=== PATIENT | female | born 1985 | race African-American/Black ===

== ENCOUNTER 2017-05-11 14:03 | Emergency (ER) | payer MEDICAID ==
[~2017-05-11] VITALS: Ht 149.9 cm; Wt 82.0 kg
[~2017-05-11 14:03] MED LIST: CEPH500C3 PO; IMOD2TAB PO; ZOFR4TAB3 SL
[2017-05-11 14:08] VITALS: BP 133/95; PULSE 91; RESP 14; TEMP 98.7; O2SAT 100
--- NOTE | 2017-05-11 15:08 | PD ---
HPI . Abdominal pain Chief Complaint: Abdominal Pain Time Seen by Provider: 15:05 Travel History International Travel<30 days: No Contact w/Intl Traveler<30days: No Traveled to known affect area: No History of Present Illness HPI Patient presents with a chief complaint of left-sided abdominal pain. Onset was at 2:00 this morning. Pain is sharp. It is exacerbated by movement. She denies any associated symptoms such as nausea, vomiting, diarrhea, constipation , urinary tract symptoms,. She did state that her last menstrual period was extremely brief. [facility] Past Medical History Medical History: Denies Significant Hx Tetanus Vaccination: < 5 Years Influenza Vaccination: No ?: Not LMP: 04/15/17 Past Surgical History Surgical History: No Previous Surgery Social History Alcohol Use: No Tobacco Use: No Substance Use: No Allergies-Medications (Allergen,Severity, Reaction): Coded Allergies: No Known Allergies (Verified Adverse Reaction, Unknown, 05/11/17) Reported Meds & Prescriptions Reported Meds & Active Scripts Active No Active Prescriptions or Reported Medications Review of Systems Except as stated in HPI: all other systems reviewed are Neg Gastrointestinal: Positive: Abdominal Pain Physical Exam Narrative GENERAL: Patient is awake and alert and in no acute distress. SKIN: Warm and dry with no rash or lesions. HEAD: Cephalic/atraumatic. EYES: Pupils are equal. Extraocular movements are intact. NECK: Neck is supple. CARDIOVASCULAR: Regular rate and rhythm. RESPIRATORY: Nonlabored respirations. ABDOMEN: Soft with left lower quadrant tenderness. No guarding or rebound. MUSCULOSKELETAL: Atraumatic. NEUROLOGICAL: Nonfocal. PSYCHIATRIC: Appropriate mood and affect. Data Data Last Documented VS Vital Signs Date Time Temp Pulse Resp B/P (MAP) Pulse Ox O2 Delivery O2 Flow Rate FiO2 05/11/17 14:08 98.7 91 14 133/95 (108) 100 Room Air Orders Orders Beta Hcg (Quant/Titer) (05/11/17 15:05) Us Pelvis (Ques Pr/Ect)W Trans (05/11/17 ) Ed Urine Pregnancytest Poc (05/11/17 15:18) Urinalysis - C+S If Indicated (05/11/17 15:21) Complete Rh (05/11/17 15:27) Labs Laboratory Tests Test 05/11/17 15:17 Human Chorionic Gonadotropin, Quant 524 MIU/ML MDM Medical Decision Making Medical Screen Exam Complete: Yes Emergency Medical Condition: Yes Differential Diagnosis Differential diagnosis of pelvic pain includes but is not limited to UTI, PID, ectopic , spontaneous AB, constipation, viral illness Narrative Course This patient presents complaining with left lower quadrant abdominal pain. She states her last menstrual period was very brief. Her urine test is positive. A quantitative hCG and pelvic ultrasound have been ordered. Diagnosis Primary Impression: Abdominal pain Qualified Codes: R10.32 - Left lower quadrant pain Scripts No Active Prescriptions or Reported Meds Tiffany Grande MD May 11, 2017 15:08
--- NOTE | 2017-05-11 15:33 | PD ---
Physical Exam Time Seen by Provider: 15:15 Data Data Last Documented VS Vital Signs Date Time Temp Pulse Resp B/P (MAP) Pulse Ox O2 Delivery O2 Flow Rate FiO2 05/11/17 14:08 98.7 91 14 133/95 (108) 100 Room Air Orders Orders Beta Hcg (Quant/Titer) (05/11/17 15:05) Us Pelvis (Ques Pr/Ect)W Trans (05/11/17 ) Ed Urine Pregnancytest Poc (05/11/17 15:18) Urinalysis - C+S If Indicated (05/11/17 15:21) Complete Rh (05/11/17 15:27) Labs Laboratory Tests Test 05/11/17 15:17 05/11/17 16:45 Human Chorionic Gonadotropin, Quant 524 MIU/ML Urine Color YELLOW Urine Turbidity HAZY Urine pH 7.0 Urine Specific [place] 1.025 Urine Protein TRACE mg/dL Urine Glucose (UA) NEG mg/dL Urine Ketones NEG mg/dL Urine Occult Blood MOD Urine Nitrite NEG Urine Bilirubin NEG Urine Urobilinogen 2.0 MG/DL Urine Leukocyte Esterase NEG Urine RBC 3 /hpf Urine WBC LESS THAN 1 /hpf Urine Squamous Epithelial Cells 4 /hpf Urine Amorphous Sediment RARE Urine Mucus FEW /lpf Microscopic Urinalysis Comment CULT NOT INDICATED MDM Medical Record Reviewed: Yes Supervised Visit with ADRIAN: No Narrative Course Please see Dr. Grande' note. Briefly this is a patient developed left lower quadrant pain at 2 AM this morning. Pain is sharp, constant. On examination she has focal mild left lower quadrant tenderness without guarding. She reports that she had slight vaginal spotting 2 days ago which she thought was her menstrual period beginning. Her last normal menstrual period was approximately April 12. She has had 2 previous full-term pregnancies. She had a positive urine test in triage. Pelvic ultrasound, quantitative beta hCG are currently pending. Given recent vaginal spotting, complete Rh has been ordered. Urinalysis has also been ordered. Ultrasound reveals CONCLUSION: Negative for products of conception. Follow up is suggested. Quantitative beta hCG is 524. The patient's abdomen is soft, she does have focal left lower quadrant tenderness and therefore this was discussed with the on-call tearer press clipping Dr. Iglesias. He does recommend that the patient return in 48 hours for repeat quantitative beta hCG and ultrasound imaging as the is simply too early to rule out ectopic. Discussed these recommendations with the patient is agreeable to returning in 2 days. Diagnosis Primary Impression: Early stage of Additional Impression: Pelvic pain during Departure Forms: Tests/Procedures, Work Release Enter return to work date: May 14, 2017 Additional Instruction: Take [id number]-[id number] Tylenol for pain per dosing instructions on the bottle. As discussed, return in 2 days for repeat quantitative beta hCG and pelvic ultrasound imaging. Return sooner for severe pain, syncope, severe lightheadedness. Med/Other Pt SpecificInfo: No Change to Meds Scripts No Active Prescriptions or Reported Meds Disposition: 01 DISCHARGE HOME Condition: Stable Odilon Holbrook May 11, 2017 15:33
[2017-05-11 15:50] LABS: BETA HCG QUANT 524 MIU/ML (0-5)
[2017-05-11 16:55] LABS: BLOOD, URINE MOD (NEG); COMMENT (UR) CULT NOT INDICATED; CULTURE IF INDICATED CULT NOT INDICATED; GLUCOSE,URINE NEG (NEG); KETONE, URINE NEG (NEG); MUCUS URINE FEW /lpf (OCC); NITRITE,URINE NEG (NEG); SQUAMOUS EPITHELIAL CELL URINE 4 /hpf (0-5); URINE COLOR YELLOW (YELLW/STRAW)
--- NOTE | 2017-05-11 16:58 | RADRPT ---
EXAM DATE/TIME: 05/11/2017 15:46 [facility] COMPARISON: No previous studies available for comparison. INDICATIONS : Pelvic pain. Limited exam due to patient body habitus LAB(S): Beta-hC MEDICAL HISTORY : . Pelvic pain. SURGICAL HISTORY : section. ENCOUNTER: Initial ACUITY: 1 day PAIN SCORE: 10/10 LOCATION: Bilateral pelvis MEASUREMENTS: TRANSABDOMINAL: FINDINGS: UTERUS: Poorly visualized without products of conception. RIGHT OVARY: Not visualized LEFT OVARY: Ovary contains no mass or significant cystic lesion. MISCELLANEOUS: Minimal free fluid CONCLUSION: Negative for products of conception. Follow up is suggested. Surinder Rajan MD FACR on May 11, 2017 at 16:42 Board Certified Radiologist. This report was verified electronically.
[2017-05-11 17:22] VITALS: BP_SYST 74
== END 2017-05-11 17:23 | disposition home or self-care (01) ==
LOC: NEPD 14:03
DX: Z32.01 Encounter for pregnancy test, result positive (principal); R10.2 Pelvic and perineal pain
CPT/HCPCS: 76700; 76817; 81001; 84702; 84703; 86901; 99284

== ENCOUNTER 2017-05-13 17:19 | Emergency (ER) | payer MEDICAID ==
[~2017-05-13] VITALS: Ht 149.9 cm; Wt 85.0 kg
[2017-05-13 17:21] VITALS: BP 154/100; PULSE 93; RESP 14; TEMP 98.7; O2SAT 100
[2017-05-13 19:10] VITALS: BP 116/77; PULSE 76; RESP 16; TEMP 97.8; O2SAT 100
--- NOTE | 2017-05-13 19:22 | PD ---
HPI Chief Complaint: Related Problem Time Seen by Provider: 19:14 Travel History International Travel<30 days: No Contact w/Intl Traveler<30days: No Traveled to known affect area: No History of Present Illness HPI 31-year-old Afro[place] female presents for follow-up recent visit for possible or threatened . She was seen 2 days ago and her hCG at that time was 524. Pelvic ultrasound showed no obvious signs of conception at that time. Patient states that this time she's not having cramping but has had some vaginal spotting. She is here for recheck hCG. She has no known drug allergies. [facility] Past Medical History Medical History: Denies Significant Hx Diminished Hearing: No Tetanus Vaccination: < 5 Years ?: LMP: 04/08/17 : 3 Past Surgical History Section: Yes (x 2) Gynecologic Surgery: Yes Social History Alcohol Use: No Tobacco Use: No Substance Use: No Allergies-Medications (Allergen,Severity, Reaction): Coded Allergies: No Known Allergies (Verified Allergy, Unknown, 05/13/17) Reported Meds & Prescriptions Reported Meds & Active Scripts Active No Active Prescriptions or Reported Medications Review of Systems General / Constitutional: No: Fever Eyes: No: Visual changes HENT: No: Headaches Cardiovascular: No: Chest Pain or Discomfort Respiratory: No: Shortness of Breath Gastrointestinal: No: Abdominal Pain Genitourinary: Positive: Vaginal Bleeding (see history present illness), No: Dysuria Musculoskeletal: No: Pain Skin: No Rash Neurologic: No: Weakness Psychiatric: No: Depression Endocrine: No: Polydipsia Hematologic/Lymphatic: No: Easy Bruising Physical Exam Narrative GENERAL: Patient is in no acute distress. SKIN: Warm and dry. Normal color. Normal turgor. HEAD: Atraumatic. Normocephalic. EYES: Pupils equal and round. No scleral icterus. No injection or drainage. ENT: No nasal bleeding or discharge. Mucous membranes pink and moist. Airways patent. Pharynx clear. NECK: Trachea midline. Supple. CARDIOVASCULAR: Regular rate and rhythm. RESPIRATORY: No accessory muscle use. Clear to auscultation. Breath sounds equal bilaterally. GASTROINTESTINAL: Abdomen soft, non-tender, nondistended. Hepatic and splenic margins not palpable. MUSCULOSKELETAL: Extremities without clubbing, cyanosis, or edema. No obvious deformities. NEUROLOGICAL: Awake and alert. No obvious cranial nerve deficits. Motor grossly within normal limits. Five out of 5 muscle strength in the arms and legs. Normal speech. PSYCHIATRIC: Appropriate mood and affect; insight and judgment normal. Data Data Last Documented VS Vital Signs Date Time Temp Pulse Resp B/P (MAP) Pulse Ox O2 Delivery O2 Flow Rate FiO2 05/13/17 19:10 79 16 05/13/17 19:10 97.8 116/77 (90) 100 Room Air Orders Orders Beta Hcg (Quant/Titer) (05/13/17 18:40) Labs Laboratory Tests Test 05/13/17 18:50 Human Chorionic Gonadotropin, Quant 232 MIU/ML [facility] Medical Decision Making Medical Screen Exam Complete: Yes Emergency Medical Condition: Yes Medical Record Reviewed: Yes Differential Diagnosis Threatened . Early . Repeat hCG. Narrative Course Patient is medically stable at time of exam. Repeat hCG is sent to the lab. Repeat hCG is now 232. Patient is medically stable for discharge. 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 Patient can return to emergency department as needed. Diagnosis Primary Impression: Spontaneous in first trimester Referrals: [facility] Patient Instructions: General Instructions, Miscarriage (ED) Additional Instructions: Repeat hCG is now 232. Patient is medically stable for discharge. 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 Patient can return to emergency department as needed. Scripts No Active Prescriptions or Reported Meds Disposition: 01 DISCHARGE HOME Condition: Stable Srinath Marr May 13, 2017 19:22
[2017-05-13 20:00] LABS: BETA HCG QUANT 232 MIU/ML (0-5)
[2017-05-13 20:26] VITALS: BP 120/81; TEMP 97.8
== END 2017-05-13 20:30 | disposition home or self-care (01) ==
LOC: NEPE 17:19
DX: O03.9 Complete or unspecified spontaneous abortion without complication (principal)
CPT/HCPCS: 84702; 99283